=== PATIENT | female | born 1975 | race Two or more races ===

== ENCOUNTER 2017-06-15 17:33 | Emergency (ER) | payer MEDICAID ==
[~2017-06-15] VITALS: Ht 172.7 cm; Wt 158.8 kg
[2017-06-15 17:52] VITALS: BP 145/77
[2017-06-15] MEDS ORDERED: CYCLOBENZAPRINE HCL 10 MG TAB PO ONE (20:30)
[2017-06-15] MEDS ORDERED: IBUPROFEN 600 MG TAB PO ONE (20:30)
== END 2017-06-15 20:38 | disposition home or self-care (01) ==
LOC: ER 17:33 → EDBD 17:33 → ER 20:33
DX: S46.811A Strain of other muscles, fascia and tendons at shoulder and upper arm level, right arm, initial encounter (principal); S66.911A Strain of unspecified muscle, fascia and tendon at wrist and hand level, right hand, initial encounter; V49.59XA Passenger injured in collision with other motor vehicles in traffic accident, initial encounter; Y93.89 Activity, other specified; Y99.8 Other external cause status; Y92.410 Unspecified street and highway as the place of occurrence of the external cause